=== PATIENT | female | born 1995 | race Caucasian/White ===

== ENCOUNTER → 2017-05-31 | Outpatient (REF) | payer OTHER ==
[2017-05-31 14:34] LABS: BASO % 0.6 % (0.0-1.0); EOS % 0.5 % (0.0-3.0); LARGE UNSTAINED CELL # 0.1 K/mm3 (0.0-0.4); LYMPH # 2.2 K/mm3 (1.5-6.5); LYMPH % 32.2 % (24.0-44.0); MEAN CORPUSCULAR HEMOGLOBIN 28.9 pg (27.0-33.0); MEAN CORPUSCULAR HGB CONC 34.2 g/dl (32.0-36.5); MEAN CORPUSCULAR VOLUME 84.7 fl (80.0-96.0); MONO # 0.4 K/mm3 (0.0-0.8); MONO % 6.5 % (0.0-5.0); NEUTROPHILS # 3.8 K/mm3 (1.8-7.7); NEUTROPHILS % 59.2 % (36.0-66.0); PLATELET COUNT, AUTOMATED 355 k/mm3 (150-450); RED CELL DISTRIBUTION WIDTH 12.9 % (11.5-14.5); WHITE BLOOD COUNT 6.5 K/mm3 (4.0-10.0)
[2017-05-31 14:39] LABS: ALBUMIN/GLOBULIN RATIO 1.21 (1.00-1.93); ALKALINE PHOSPHATASE 122 U/L (45-117); ALT/SGPT 27 U/L (12-78); ANION GAP 9 MEQ/L (8-16); AST/SGOT 19 U/L (15-37); BILIRUBIN,TOTAL 0.4 MG/DL (0.2-1.0); BLOOD UREA NITROGEN 11 MG/DL (7-18); CALCIUM LEVEL 9.3 MG/DL (8.5-10.1); CARBON DIOXIDE LEVEL 25 MEQ/L (21-32); CHLORIDE LEVEL 104 MEQ/L (98-107); CREATININE FOR GFR 0.56 MG/DL (0.55-1.02); GLOMERULAR FILTRATION RATE > 60.0 (>60); GLUCOSE, FASTING 83 MG/DL (70-105); POTASSIUM SERUM 4.2 MEQ/L (3.5-5.1); SODIUM LEVEL 138 MEQ/L (136-145); TOTAL PROTEIN 7.3 GM/DL (6.4-8.2)
[2017-05-31 15:16] LABS: ERYTHROCYTE SEDIMENTATION RATE 24 mm/hr (0-20)
[2017-06-02 00:06] LABS: Lyme Disease IgG/IgM Antibodie <0.91 ISR (0.00-0.90); Lyme Disease IgM Ab Quantitati <0.80 index (0.00-0.79)
== END ==
LOC: M LABDRAW1 13:23
PROVIDERS: ATTEND Internal Medicine Rheumatology
DX: M35.9 Systemic involvement of connective tissue, unspecified (principal); Z79.899 Other long term (current) drug therapy; E55.9 Vitamin D deficiency, unspecified; R53.83 Other fatigue

== ENCOUNTER → 2019-10-17 | Outpatient (REF) | payer OTHER ==
[2019-10-17 17:11] LABS: ALBUMIN 3.9 GM/DL (3.2-5.2); ALT/SGPT 43 U/L (12-78); BILIRUBIN,TOTAL 0.4 MG/DL (0.2-1.0); BLOOD UREA NITROGEN 7 MG/DL (7-18); C REACTIVE PROTEIN QUANTITATIV 1.37 MG/DL (0.00-0.30); CARBON DIOXIDE LEVEL 28 MEQ/L (21-32); CHLORIDE LEVEL 105 MEQ/L (98-107); COMPLEMENT C3 150 MG/DL (90-180); COMPLEMENT C4 31 MG/DL (10-40); GLOMERULAR FILTRATION RATE > 60.0 (>60); GLUCOSE, FASTING 77 MG/DL (70-100); POTASSIUM SERUM 4.3 MEQ/L (3.5-5.1); RHEUMATOID FACTOR QUANT < 10.0 IU/ML (<15.0); SODIUM LEVEL 137 MEQ/L (136-145); TOTAL PROTEIN 7.9 GM/DL (6.4-8.2)
== END ==
LOC: M SFHCRHEU 12:15
PROVIDERS: ATTEND Internal Medicine Rheumatology
DX: M79.7 Fibromyalgia (principal); R89.9 Unspecified abnormal finding in specimens from other organs, systems and tissues

== ENCOUNTER 2022-04-30 16:47 | Observation (INO) | payer OTHER ==
[~2022-04-30] VITALS: Ht 152.4 cm; Wt 100.5 kg
[2022-04-30] MEDS ORDERED: KETOROLAC 30 MG/ML 1ML VIAL IV PRN (20:05)
[2022-04-30 20:24] VITALS: BP 125/72
[2022-04-30] MEDS ORDERED: HOME MED LIST COMPLETE! XX SCH (20:35)
[2022-04-30] MEDS: NS 1,000 ML IV SCH (20:53)
[2022-04-30] MEDS ORDERED: cefTRIAXone SOD 1 GM in D5W MINI-BAG PLUS 50 ML IV SCH (21:00)
[2022-04-30] MEDS ORDERED: ONDANSETRON 4MG 2ML VIAL IV PRN (21:40)
[2022-04-30] MEDS ORDERED: guaiFENesin SYRUP 200MG 10ML UDC PO PRN (21:55)
[2022-04-30] MEDS ORDERED: COMBIVENT RESPIMAT 100-20MCG INHALER 4GM INH PRN (21:55)
[2022-04-30] MEDS: MORPHINE 2 MG/ML 1ML VIAL IV PRN (23:39)
[2022-05-01] VITALS (10 sets, daily range): BP systolic 100–121; BP diastolic 57–76
[2022-05-01] MEDS ORDERED: LevoFLOXacin 750 MG TABLET PO SCH (06:00)
[2022-05-01] MEDS: NS 1,000 ML IV SCH ×2 (06:05→16:05)
[2022-05-01] MEDS: KETOROLAC 30 MG/ML 1ML VIAL IV PRN ×2 (06:08→16:29)
[2022-05-01 06:15] LABS: HEMATOCRIT 35.6 % (36.0-47.0); HEMOGLOBIN 11.5 g/dl (12.0-15.5); MEAN CORPUSCULAR HEMOGLOBIN 26.5 pg (27.0-33.0); MEAN CORPUSCULAR HGB CONC 32.3 g/dl (32.0-36.5); PLATELET COUNT, AUTOMATED 359 10^3/uL (150-450); RED BLOOD COUNT 4.34 10^6/uL (4.00-5.40); WHITE BLOOD COUNT 19.2 10^3/uL (4.0-10.0)
[2022-05-01 06:34] LABS: ALBUMIN 3.2 GM/DL (3.2-5.2); ALT/SGPT 17 U/L (12-78); BILIRUBIN,TOTAL 0.6 MG/DL (0.2-1.0); BLOOD UREA NITROGEN 11 MG/DL (7-18); CALCIUM LEVEL 8.9 MG/DL (8.5-10.1); CARBON DIOXIDE LEVEL 26 MEQ/L (21-32); CHLORIDE LEVEL 107 MEQ/L (98-107); CREATININE FOR GFR 1.03 MG/DL (0.55-1.30); GLOMERULAR FILTRATION RATE > 60.0 (>60); GLUCOSE, FASTING 97 MG/DL (70-100); MAGNESIUM LEVEL 1.9 MG/DL (1.8-2.4); SODIUM LEVEL 138 MEQ/L (136-145); TOTAL PROTEIN 6.8 GM/DL (6.4-8.2)
[2022-05-01] MEDS: MORPHINE 2 MG/ML 1ML VIAL IV PRN ×2 (08:23→14:54)
[2022-05-01] MEDS ORDERED: ISOVUE-300 61% 50ML VIAL As Ordered ONE (11:03)
[2022-05-01] MEDS ORDERED: LIDOCAINE 2% 5ML JELLY UROJET As Ordered ONE (11:07)
[2022-05-01] MEDS ORDERED: LIDOCAINE 2% INJ 100 MG/5 ML SYRINGE As Ordered ONE (11:33)
[2022-05-01] MEDS ORDERED: propofoL 200 MG/20 ML VIAL As Ordered ONE (11:33)
[2022-05-01] MEDS ORDERED: fentaNYL 250 MCG/5 ML INJECTION As Ordered ONE (11:33)
[2022-05-01] MEDS ORDERED: MIDAZOLAM INJ 2MG/2ML VIAL (J2250 PER 1MG) As Ordered ONE (11:34)
[2022-05-01] MEDS ORDERED: oxyBUTYnin 5 MG TAB PO PRN (14:45)
[2022-05-01] MEDS ORDERED: carisoprodoL 350 MG TAB PO PRN (19:55)
[2022-05-01] MEDS: ACETAMINOPHEN TAB 650MG DOSE (2X325MG) PO PRN (20:17)
[2022-05-01] MEDS ORDERED: OXYB5TAB10 PO (21:33)
[2022-05-01] MEDS ORDERED: LEVO750T13 PO (21:33)
[2022-05-01 21:58] LABS: BASO % 0.2 % (0.0-1.0); EOS % 0.1 % (0.0-3.0); HEMATOCRIT 34.7 % (36.0-47.0); HEMOGLOBIN 11.3 g/dl (12.0-15.5); LYMPH # 1.7 10^3/uL (1.5-5.0); LYMPH % 10.6 % (24.0-44.0); MEAN CORPUSCULAR HEMOGLOBIN 27.2 pg (27.0-33.0); MEAN CORPUSCULAR HGB CONC 32.6 g/dl (32.0-36.5); MEAN CORPUSCULAR VOLUME 83.4 fl (80.0-96.0); MONO # 1.3 10^3/uL (0.0-0.8); MONO % 7.8 % (2.0-8.0); NEUTROPHILS # 13.3 10^3/uL (1.5-8.5); NEUTROPHILS % 80.8 % (36.0-66.0); PLATELET COUNT, AUTOMATED 344 10^3/uL (150-450); RED BLOOD COUNT 4.16 10^6/uL (4.00-5.40); WHITE BLOOD COUNT 16.5 10^3/uL (4.0-10.0)
[2022-05-01] MEDS ORDERED: KETOROLAC TROMETHAMINE 10 MG TAB PO PRN (23:00)
[2022-05-02] MEDS: ACETAMINOPHEN TAB 650MG DOSE (2X325MG) PO PRN (00:30)
== END 2022-05-02 00:43 | disposition left against medical advice (07) ==
LOC: INTOOBSV 19:13 → M MSPAV 19:13
PROVIDERS: ADMIT Internal Medicine; ATTEND Internal Medicine
DX: U07.1 COVID-19 (principal); N13.0 Hydronephrosis with ureteropelvic junction obstruction; R00.0 Tachycardia, unspecified; R50.9 Fever, unspecified; F41.9 Anxiety disorder, unspecified; F32.A Depression, unspecified; E28.2 Polycystic ovarian syndrome; N80.9 Endometriosis, unspecified; J45.909 Unspecified asthma, uncomplicated; F17.200 Nicotine dependence, unspecified, uncomplicated
CPT/HCPCS: 36415; 52332; 52352; 74420; 80053; 81001; 83605; 83735; 84145; 85025; 85027; 87086; 96361; 96365; 96366; 96375; 96376; C1769; C2617; J0696; J1885; J2250; J2270; J2405; J3010; Q9967

== ENCOUNTER 2022-05-18 06:38 | Day surgery (SDC) | payer OTHER ==
[~2022-05-18] VITALS: Ht 165.1 cm; Wt 94.3 kg
[~2022-05-18 06:38] MED LIST: LEVO750T13 PO; OXYB5TAB10 PO; ceFAZolin SOD 2 GM in IV 1 EA IV ONE
[2022-05-18] MEDS ORDERED: ISOVUE-300 61% 50ML VIAL As Ordered ONE (07:43)
[2022-05-18] MEDS ORDERED: LIDOCAINE 2% 5ML JELLY UROJET As Ordered ONE (08:22)
[2022-05-18] MEDS ORDERED: MIDAZOLAM INJ 2MG/2ML VIAL (J2250 PER 1MG) As Ordered ONE (08:35)
[2022-05-18] MEDS ORDERED: fentaNYL 100 MCG/2 ML INJECTION As Ordered ONE (08:35)
[2022-05-18] MEDS ORDERED: propofoL 200 MG/20 ML VIAL As Ordered ONE ×2 (08:35→08:46)
[2022-05-18] MEDS ORDERED: ACETAMINOPHEN 1000MG 100ML IV BTL (OFIRMEV) (J0131 PER 10MG) As Ordered ONE (08:41)
[2022-05-18] MEDS ORDERED: ETOMIDATE INJ 20MG/10ML VIAL As Ordered ONE (08:46)
[2022-05-18] MEDS ORDERED: LR 1,000 ML IV SCH (09:10)
[2022-05-18] MEDS ORDERED: FLOM0.4C39 PO (09:31)
[2022-05-18] MEDS ORDERED: KETO10TAB PO (09:31)
[2022-05-18] MEDS ORDERED: PERCOCET 5MG/325MG TAB PO PRN (09:40)
[2022-05-18 09:44] VITALS: BP 95/55
== END 2022-05-18 09:47 | disposition home or self-care (01) ==
LOC: M SDC 06:38
PROVIDERS: ATTEND Urology
DX: N20.0 Calculus of kidney (principal); F41.9 Anxiety disorder, unspecified; F32.A Depression, unspecified
CPT/HCPCS: 52332; 74420; C1769; C2617; J0131; J0690; J2250; J3010; Q9967

== ENCOUNTER → 2025-06-05 | Outpatient (CLI) | payer OTHER ==
[~2025-06-05] MED LIST changes: +ALBU8.5H INH; +CEFD1CAP9 PO; +CELE0.09 PO; +DOXY-440 PO; +FLUT50BL INH; +KETO-204 PO; +KETO10TAB PO; +LEVO1TAB40 PO; -LEVO750T13 PO; +OXYB-54 PO; -OXYB5TAB10 PO; +OXYB5TAB14 PO; +PROB250C PO; +TAMS-18 PO; +[UNRECOGNIZED DRUG - REMARK]; -ceFAZolin SOD 2 GM in IV 1 EA IV ONE
[2025-06-05 12:10] LABS: PLATELET COUNT, AUTOMATED 405 10^3/uL (150-450)
[2025-06-05 12:30] LABS: APPEARANCE, URINE CLOUDY (CLEAR); BACTERIA, URINE AUTO 1+ (NEGATIVE); BILIRUBIN, URINE AUTO NEGATIVE (NEGATIVE); BLOOD, URINE BLOOD 2+ (NEGATIVE); GLUCOSE, URINE (UA) AUTO NEGATIVE (NEGATIVE); KETONE, URINE AUTO NEGATIVE (NEGATIVE); LEUKOCYTE ESTERASE, URINE AUTO 3+ (NEGATIVE); MUCUS, URINE SMALL (NEGATIVE); NITRITE, URINE AUTO NEGATIVE (NEGATIVE); PROTEIN, URINE AUTO 2+ mg/dL (NEGATIVE); RBC, URINE AUTO 173 /HPF (0-3); SPECIFIC GRAVITY URINE AUTO 1.016 (1.002-1.035); SQUAMOUS EPITHELIAL CELL UR AU 0 /HPF (0-6); UROBILINOGEN, URINE AUTO 0.2 mg/dL (0.0-2.0); WBC, URINE AUTO TNTC /HPF (0-3)
[2025-06-05 12:45] LABS: CALCIUM LEVEL 8.9 MG/DL (8.5-10.1); CARBON DIOXIDE LEVEL 27 MMOL/L (20-31); CHLORIDE LEVEL 104 MMOL/L (98-107); CREATININE FOR GFR 0.66 MG/DL (0.55-1.30); GLOMERULAR FILTRATION RATE > 90.0 (>60); POTASSIUM SERUM 4.0 MMOL/L (3.5-5.1); SODIUM LEVEL 141 MMOL/L (136-145)
== END ==
LOC: M RAD 09:56
PROVIDERS: ATTEND Nurse Practitioner Family
DX: Z01.818 Encounter for other preprocedural examination (principal)

== ENCOUNTER 2025-06-11 10:33 | Day surgery (SDC) | payer OTHER ==
[~2025-06-11] VITALS: Ht 167.6 cm; Wt 75.3 kg
[2025-06-11] MEDS ORDERED: ONDANSETRON 4MG 2ML VIAL As Ordered ONE (14:20)
[2025-06-11] MEDS ORDERED: LIDOCAINE 2% 100 MG/5 ML SDV (FOR ANES.) As Ordered ONE (14:20)
[2025-06-11] MEDS ORDERED: dexAMETHasone 4 MG/ML 1 ML VIAL As Ordered ONE (14:20)
[2025-06-11] MEDS ORDERED: MIDAZOLAM INJ 2 MG/2 ML VIAL As Ordered ONE (14:21)
[2025-06-11] MEDS ORDERED: dexmedeTOMIDine (4 MCG/ML) 200 MCG/50 ML BTL As Ordered ONE (14:37)
[2025-06-11] MEDS: ceFAZolin SOD 2 GM IV ONCE IV ONE (14:47)
[2025-06-11] MEDS ORDERED: ACETAMINOPHEN 1000MG/100ML IV BAG As Ordered ONE (15:13)
[2025-06-11] MEDS: ISOVUE-300 61% 100 ML VIAL As Ordered ONE (15:27)
[2025-06-11] MEDS ORDERED: MORPHINE 2 MG/ML 1 ML VIAL IV PRN (16:45)
[2025-06-11] MEDS: HYDROMORPHONE HCL 0.5 MG/0.5 ML SYRINGE IV PRN (17:31)
[2025-06-11 18:20] VITALS: BP 117/62; TEMP 97.5; O2SAT 98
== END 2025-06-11 19:12 | disposition home or self-care (01) ==
LOC: M SDC 10:33
PROVIDERS: ATTEND Urology
DX: N20.1 Calculus of ureter (principal); E28.2 Polycystic ovarian syndrome; K21.9 Gastro-esophageal reflux disease without esophagitis; J45.909 Unspecified asthma, uncomplicated; F17.200 Nicotine dependence, unspecified, uncomplicated; F41.9 Anxiety disorder, unspecified; F32.A Depression, unspecified; F90.9 Attention-deficit hyperactivity disorder, unspecified type; Z79.51 Long term (current) use of inhaled steroids; Z79.899 Other long term (current) drug therapy
CPT/HCPCS: 52356; 74420; 82365; C2617; J0131; J0690; J1100; J1171; J2250; J2405; J3010; Q9967